=== PATIENT | male | born 1965 | race Asian ===

== ENCOUNTER 2019-01-14 00:11 | Emergency (ER) | payer BC ==
[~2019-01-14] VITALS: Ht 190.5 cm; Wt 113.4 kg
[2019-01-14 00:20] VITALS: TEMP 98.1
[2019-01-14 02:03] LABS: PLATELET COUNT 297 K/uL (142-355)
[2019-01-14 02:05] LABS: POTASSIUM 3.4 mmol/L (3.6-5.2)
[2019-01-14 03:43] VITALS: BP 131/91
== END 2019-01-14 03:48 | disposition home or self-care (01) ==
LOC: ED 00:11
PROVIDERS: Family Medicine
DX: M10.9 Gout, unspecified (principal); E87.6 Hypokalemia
CPT/HCPCS: 36415; 80053; 81000; 84550; 85027; 96372; 99283; J1885